=== PATIENT | female | born 1970 | race Caucasian/White ===

== ENCOUNTER → 2023-01-27 | Outpatient (CLI) | payer MEDICARE, SELFPAY ==
--- NOTE | 2023-01-27 07:38 | MRI_ITS ---
EXAM: MR PELVIS WITHOUT AND WITH INTRAVENOUS CONTRAST CLINICAL INDICATION: ADNEXAL MASS, L BACK PAIN TECHNIQUE: Multiplanar and multisequence MR images of the pelvis without and with intravenous contrast. This report was created using [employer] report generation technology. CONTRAST: 22CC IV CLARISCAN COMPARISON: None. FINDINGS: APPENDIX: Not visualized but no obvious evidence of acute appendicitis. INTRAPERITONEAL SPACE: Mild pelvic free fluid. No peritoneal studding is identified. BLADDER: Unremarkable. REPRODUCTIVE: Somewhat lobular mass of the right hemipelvis measures 6.2 x 6.9 x 6.2 cm, as visible on image 10 of series 9 and image 17 of series 10. Although the mass abuts the right adnexa on image 10 of series 9, the mass appears to arise from the left adnexa, as seen on image 7 of series 9 and image 15 series 17. The left posterolateral margin of the mass abuts the uterine fundus although there does appear to be a preserved fat plane between the mass and uterus. On T2-weighted images, there is irregular signal intensity with broad areas of relatively increased T2 signal intensity as well as rounded, focal areas of diminished T2 signal intensity. Following IV contrast, there is homogenous enhancement similar to that of the adjacent uterine myometrium. BONES/JOINTS: Unremarkable. No suspicious lytic or blastic abnormality. SOFT TISSUES: Unremarkable. No pelvic wall hernia. LYMPH NODES: Unremarkable. No enlarged lymph nodes. MRI/Pelvis W/WO Contrast IMPRESSION: Solid adnexal mass that appears to be arising from the left adnexa but positioned in the right hemipelvis. O-RADS-4 (intermediate risk). Recommend management by tack puller machine with college athlete-oncologist consultation or solely by college athlete-oncologist, according to ACR guidelines. Electronically Signed: Jeramy Morris ([place]), at 9:57 EDT ,
== END | disposition home or self-care (01) ==
LOC: MRI 07:25
PROVIDERS: PCP Family Medicine; Referring Provider Family Medicine; Visit Provider Family Medicine
DX: N83.8 Other noninflammatory disorders of ovary, fallopian tube and broad ligament (principal)
CPT/HCPCS: 72197; A9575